=== PATIENT | male | born 1985 | race Caucasian/White ===

== ENCOUNTER 2017-07-25 11:28 | Emergency (ER) | payer SELFPAY ==
[~2017-07-25] VITALS: Ht 180.3 cm; Wt 108.8 kg
[2017-07-25] MEDS ORDERED: BACTRIM,SEPT1 TABLET PO (13:06)
[2017-07-25 13:30] VITALS: BP 175/91
== END 2017-07-25 13:39 | disposition home or self-care (01) ==
LOC: EME 11:28
DX: L02.414 Cutaneous abscess of left upper limb (principal); F17.200 Nicotine dependence, unspecified, uncomplicated
CPT/HCPCS: 99281; 99283